=== PATIENT | female | born 1990 | race Caucasian/White ===

== ENCOUNTER 2021-04-09 05:19 | Inpatient (IN) | payer MEDICAID ==
[2021-04-09] MEDS ORDERED: Scopolamine 1.5 MG Transdermal Patch TRDERM ONE (05:30)
[2021-04-09] MEDS ORDERED: Acetaminophen 500 MG Tab PO ONE (05:30)
[2021-04-09] MEDS ORDERED: Celecoxib 200 MG Cap PO ONE (05:30)
[2021-04-09] MEDS ORDERED: cefOXitin 2 GM Vial ONE (06:52)
[2021-04-09] MEDS ORDERED: Dextrose 5%-Lactated Ringers 1,000 ML IV SCH (07:00)
[2021-04-09] MEDS ORDERED: Albuterol/Ipratropium 3.0-0.5 MG/3 ML Neb Soln NEB ONE (07:00)
[2021-04-09] MEDS ORDERED: Ondansetron 4 MG/2 ML SDV ONE (07:10)
[2021-04-09] MEDS ORDERED: Propofol 200 MG/20 ML SDV ONE (07:10)
[2021-04-09] MEDS ORDERED: fentaNYL 250 MCG/5 ML SDV ONE (07:10)
[2021-04-09] MEDS ORDERED: Neostigmine Methylsulfate 1 MG/ML 5 ML Syringe ONE (07:10)
[2021-04-09] MEDS ORDERED: Dexamethasone 4 MG/ML SDV ONE (07:10)
[2021-04-09] MEDS ORDERED: Rocuronium 50 MG/5 ML Vial ONE (07:10)
[2021-04-09] MEDS ORDERED: Succinylcholine 200 MG/10 ML MDV ONE (07:10)
[2021-04-09] MEDS ORDERED: Glycopyrrolate 0.2 MG/ML 5 ML MDV ONE (07:10)
[2021-04-09] MEDS ORDERED: Lactated Ringers 1,000 ML ONE (07:14)
[2021-04-09] MEDS ORDERED: cefOXitin 2 GM in Sodium Chloride 0.9% 50 ML IV ONE (07:45)
[2021-04-09] MEDS ORDERED: Ropivacaine 50 ML, dexAMETHasone 8 MG, EPINEPHrine 0.4 MG, Sodium Chloride 0.9% 27.6 ML NERVRT SCH ×4 (08:00)
[2021-04-09] MEDS ORDERED: Magnesium Sulfate 3 GM in Sodium Chloride 0.9% 100 ML IV SCH (08:00)
[2021-04-09] MEDS ORDERED: Ketamine 500 MG/5 ML MDV IV SCH (08:00)
[2021-04-09] MEDS ORDERED: Ketamine 50 MG in Sodium Chloride 0.9% 49.5 ML IV SCH (08:00)
[2021-04-09] MEDS ORDERED: Magnesium Sulfate 3.2 GM in Sodium Chloride 0.9% 250 ML IV ONE (08:30)
[2021-04-09] MEDS ORDERED: fentaNYL 100 MCG/2 ML SDV ONE (09:29)
[2021-04-09] MEDS ORDERED: hydrOXYzine HCL 100 MG/2 ML SDV IM ONE (10:13)
[2021-04-09] MEDS ORDERED: fentaNYL 100 MCG/2 ML SDV IVPUSH ONE (10:23)
[2021-04-09] MEDS ORDERED: Cyclobenzaprine 10 MG Tab PO PRN (11:20)
[2021-04-09] MEDS ORDERED: diphenhydrAMINE 50 MG/ML SDV IVPUSH PRN (12:00)
[2021-04-09] MEDS ORDERED: HYDROmorphone 0.5 MG/0.5 ML Syringe IVPUSH PRN (12:00)
[2021-04-09] MEDS ORDERED: HYDROmorphone 1 MG/ML Syringe IV PRN (12:00)
[2021-04-09] MEDS ORDERED: Labetalol 20 MG/4 ML Syringe IVPUSH PRN (12:00)
[2021-04-09] MEDS ORDERED: traMADol 50 MG Tab PO PRN (12:00)
[2021-04-09] MEDS ORDERED: Calcium Gluconate 10% 1 GM/10 ML SDV IVPUSH PRN (12:00)
[2021-04-09] MEDS ORDERED: Ondansetron 4 MG/2 ML SDV IVPUSH PRN (12:00)
[2021-04-09] MEDS ORDERED: hydrOXYzine HCL 100 MG/2 ML SDV IM PRN (12:00)
[2021-04-09] MEDS ORDERED: Metoclopramide 10 MG/2 ML SDV IVPUSH PRN (12:00)
[2021-04-09] MEDS ORDERED: Albuterol/Ipratropium 3.0-0.5 MG/3 ML Neb Soln INH PRN (12:00)
[2021-04-09] MEDS ORDERED: Acetaminophen 500 MG Tab PO PRN (12:00)
[2021-04-09] MEDS: Dextrose 5%-Lactated Ringers 1,000 ML IV SCH (13:08)
[2021-04-09] MEDS: cefOXitin 2 GM in Sodium Chloride 0.9% 50 ML IV SCH ×2 (13:12→19:59)
[2021-04-09] MEDS: Acetaminophen 500 MG Tab PO SCH ×2 (13:30→21:38)
[2021-04-09] MEDS ORDERED: Pantoprazole 40 MG Vial IVPUSH SCH (14:00)
[2021-04-09] MEDS: Albuterol/Ipratropium 3.0-0.5 MG/3 ML Neb Soln INH SCH ×2 (14:34→21:38)
[2021-04-09] MEDS ORDERED: MVI, Adult with Vitamin K 10 ML, Thiamine 200 MG, Zinc/Copper/Manganese/Selenium 1 ML i... IV SCH ×4 (16:00)
[2021-04-09] MEDS: oxyCODONE 5 MG Tab PO PRN ×2 (16:19→22:14)
--- NOTE | 2021-04-09 16:46 | PCM.EKG ---
#1 Interpretation EKG Date: 04/09/21 Time: 07:02 Rhythm: NSR Rate (Beats/Min): 71 [place]: Normal P-Wave: Present QRS: Normal ST-T: Normal QT: Normal [place]/PQ Interval: Normal Comparison: NA - No Prior EKG
[2021-04-09] MEDS: Heparin Sodium 5,000 Units/ML Vial SUBCUT SCH (18:05)
[2021-04-10] MEDS: cefOXitin 2 GM in Sodium Chloride 0.9% 50 ML IV SCH ×2 (02:11→08:53)
[2021-04-10] MEDS: Dextrose 5%-Lactated Ringers 1,000 ML IV SCH ×2 (02:13→06:12)
[2021-04-10] MEDS ORDERED: Iopamidol 612 MG/ML 50 ML SDV PO PRN (02:15)
[2021-04-10] MEDS: oxyCODONE 5 MG Tab PO PRN ×3 (04:33→21:45)
[2021-04-10] MEDS: Heparin Sodium 5,000 Units/ML Vial SUBCUT SCH ×2 (06:10→17:17)
[2021-04-10] MEDS: Acetaminophen 500 MG Tab PO SCH ×3 (06:10→21:46)
[2021-04-10] MEDS: Albuterol/Ipratropium 3.0-0.5 MG/3 ML Neb Soln INH SCH ×4 (07:08→21:45)
[2021-04-10] MEDS ORDERED: Dextrose 5%-Lactated Ringers 1,000 ML IV SCH (08:00)
[2021-04-10] MEDS: Fluconazole 100 MG Tab PO SCH (08:55)
[2021-04-10] MEDS: Fluticasone Propionate Nasal Spray 16 GM Bottle NASBOTH SCH (08:55)
[2021-04-10] MEDS: Famotidine 20 MG Tab PO SCH (08:55)
[2021-04-10] MEDS: Celecoxib 200 MG Cap PO SCH ×2 (08:55→21:45)
[2021-04-10] MEDS: SCOPOLAMINE PATCH CHECK TOP SCH (08:56)
[2021-04-10] MEDS: Cetirizine 10 MG Tab PO SCH (08:56)
[2021-04-10] MEDS ORDERED: Ondansetron 4 MG Tab.DIS PO PRN (12:48)
[2021-04-10] MEDS ORDERED: Pantoprazole 40 MG Delayed-Release Granules 1 Packet PO SCH (14:00)
[2021-04-10] MEDS ORDERED: MVI, Adult with Vitamin K 10 ML, Thiamine 200 MG, Zinc/Copper/Manganese/Selenium 1 ML i... IV SCH ×4 (16:00)
[2021-04-11] MEDS: oxyCODONE 5 MG Tab PO PRN (05:26)
[2021-04-11] MEDS: Heparin Sodium 5,000 Units/ML Vial SUBCUT SCH (05:27)
[2021-04-11] MEDS: Acetaminophen 500 MG Tab PO SCH (05:27)
[2021-04-11] MEDS: Albuterol/Ipratropium 3.0-0.5 MG/3 ML Neb Soln INH SCH (07:17)
[2021-04-11] MEDS ORDERED: Magnesium Hydroxide 400 MG/5 ML Susp 30 ML Cup PO ONE (09:00)
[2021-04-11] MEDS ORDERED: Cyanocobalamin (Vitamin B12) 1,000 MCG/ML SDV IM ONE (09:00)
[2021-04-11] MEDS: SCOPOLAMINE PATCH CHECK TOP SCH (09:47)
[2021-04-11] MEDS: Famotidine 20 MG Tab PO SCH (09:49)
[2021-04-11] MEDS: Fluconazole 100 MG Tab PO SCH (09:49)
[2021-04-11] MEDS: Celecoxib 200 MG Cap PO SCH (09:49)
[2021-04-11] MEDS: Cetirizine 10 MG Tab PO SCH (09:49)
[2021-04-11] MEDS: Fluticasone Propionate Nasal Spray 16 GM Bottle NASBOTH SCH (09:50)
--- NOTE | 2021-04-12 09:24 | CR ---
UGI Limited HISTORY: Postbariatric surgery FINDINGS: Patient swallowed water-soluble contrast. Upright views of the abdomen show no evidence of extravasation or obstruction. There is a surgical drain in the left upper quadrant IMPRESSION: Status post bariatric surgery No extravasation or obstruction seen
--- NOTE | 2021-04-16 13:47 | PN ---
DATE OF SERVICE: 04/10/2021 The patient is postop day 1 from laparoscopic gastric bypass along with truncal vagotomy and repair of paraesophageal diaphragmatic hernia. Clinically, she is doing well at this point and will be moved up to a step-2 diet. Upper GI x-ray looks good, and she may be ready for discharge home tomorrow. Isaiah Fernandez MD /[id number]
--- NOTE | 2021-04-16 13:56 | DISCH ---
FINAL DIAGNOSES: 1. Morbid obesity. 2. History of non-alcoholic steatohepatitis. 3. Paraesophageal diaphragmatic hernia. 4. History of recurrent peptic ulcer disease, gastritis, and duodenitis. SECONDARY DIAGNOSES: 1. Anxiety. 2. Asthma. 3. Gastroesophageal reflux disease. 4. History of gestational diabetes. OPERATIVE PROCEDURE: Done on 04/09/2021, diagnostic laparoscopy with: 1. Laparoscopic Vipul-en-Y gastric bypass along with gastroenterostomy. 2. Abisai-Cut needle liver biopsy. 3. Repair of paraesophageal diaphragmatic hernia. 4. Truncal vagotomy. SUMMARY: This is a 30-year-old female presenting with longstanding morbid obesity and increasingly significant comorbidities. After preoperative evaluation and discussion, she wished to proceed with a gastric bypass procedure. She does have a history of TEMPLE and will undergo a liver biopsy as do all of the obesity surgery patients. She also has history of [id number] gastritis, duodenitis, and peptic ulcer disease, and to augment postoperative control in the bypassed portion of the stomach and duodenum, truncal vagotomy will be planned as well, and we will then continue on the Pepcid and Prevacid postoperatively. The Carafate in this case would not be effective as it would not be in contact with the bypassed stomach or duodenum. Postoperatively, the patient had no major problems. She is sent home on a step-2 diet with followup with Cyndy Sanchez at [facility] on 04/19/2021. Her medications will be the same as preoperatively other than we will hold the Carafate as mentioned above and she will be offered Tylenol 1 g q.i.d. p.r.n. as well as oxycodone 5 mg p.o. q.6 hours p.r.n., #12. /[id number]
--- NOTE | 2021-04-19 14:43 | OR ---
DATE OF PROCEDURE: 04/09/2021 SURGEON: Isaiah Fernandez MD PREOPERATIVE DIAGNOSES: 1. Morbid obesity. 2. History of recurrent peptic ulcer disease. 3. History of nonalcoholic steatohepatitis. POSTOPERATIVE DIAGNOSES: 1. Morbid obesity. 2. History of recurrent peptic ulcer disease. 3. History of nonalcoholic steatohepatitis. 4. Paraesophageal diaphragmatic hernia. OPERATIVE PROCEDURES: Diagnostic laparoscopy with: 1. Laparoscopic Vipul-en-Y gastric bypass with long limb gastroenterostomy (68668). 2. Abisai-Cut needle liver biopsy (67811). 3. Repair of paraesophageal diaphragmatic hernia (35550). 4. Truncal vagotomy (48678). ANESTHESIA: General. DBAS: Cyndy Sanchez PA-C INDICATIONS FOR PROCEDURE: This is a 30-year-old female, presenting with longstanding morbid obesity and increasingly significant comorbidities. Plan is to proceed with a Vipul- en-Y gastric bypass. The patient also has history of nonalcoholic steatohepatitis, so as per the bariatric surgery routine, a liver biopsy will be obtained. She also has history of some recurrent peptic ulcer disease, presently being maintained on a combination of Carafate and proton pump inhibitors. Per preoperative discussion, a truncal vagotomy will also be performed at this procedure, which should generally decrease the recurrence rate of peptic ulcer disease as well as associated gastritis and duodenitis by around 50%. Potential risks of the procedure including bleeding, infection, leaks from various GI tract closures, problems with bowel obstruction over time, as well as possibility of cardiopulmonary, septic, or hemorrhagic complications leading to were discussed, and the patient wishes to proceed. The patient is aware that despite the truncal vagotomy, there is some possibility of the patient developing recurrent peptic ulcer disease or bleeding gastritis and duodenitis, which might at some point require a completion distal gastrectomy. DETAILS OF PROCEDURE: The patient was taken to the operating room. After general endotracheal anesthesia was induced, the abdomen was prepped and draped. The patient was placed in a lithotomy position. 15 cm inferior and 5 cm left of the Xiphoid process, a transverse incision was made and the peritoneal cavity entered under direct vision with an Optiview trocar, inflated to 15 mmHg pressure with CO2. Laparoscope was reinserted. No underlying trocar insertion site injuries were seen. Following this, bilateral transversus abdominis plane blocks were placed and 5 additional trocars were placed across the upper and mid abdomen. Liver was examined and at this point found to be grossly only minimally fatty infiltrated. There were no signs of any hepatic cirrhosis or portal hypertension. Abisai-Cut biopsies were obtained from left lobe of the liver. Minimal bleeding from the biopsy sites was controlled with electrocautery. The omentum was then divided in the midline up to the level of the transverse colon. This allowed identification of small bowel to the ligament of Treitz. Small bowel was then traced out 150 cm distal to that point, where it was divided transversely with a AHMET stapler. Small bowel was then traced out additional 150 cm where the fjia-ca-ghii enteroenterostomy was accomplished with an internal firing of the Endo-AHMET 60 mm stapler. Common opening was then closed transversely with the same stapler and angles anastomosed and mesenteric defect approximated with some 0 Ethibond stitch along with 4 mL of fibrin sealant. The liver was then retracted anteriorly, and at this point, the patient was noted to have a moderate-sized paraesophageal diaphragmatic hernia and peritoneum overlying this was incised and reflected downward and the diaphragmatic hernia was then repaired anteriorly with a series of 0 Ethibond sutures reinforced with PTFE pledgets. The anterior vagus nerve was easily identified and the soft tissue around the distal esophagus were then skeletonized from that point posteriorly on the right side. During the course of the diaphragmatic hernia dissection, the peritoneum and fatty tissues on the anterior aspect of the esophagus were likewise divided and this dissection then continued posteriorly more or less circumferentially around the distal esophagus. The main trunk of the posterior left vagus nerve was also identified and divided with Harmonic Scalpel and the previous nerve and nerve branches. At this point, the gastrointestinal catheter was inflated 15 mL and pulled up snugly against the EG junction. Gastric wall over the apex of the balloon was then marked with electrocautery and balloon catheter deflated and pulled up from the esophagus. The lesser omental tissue adjacent to the gastric cardia was then incised allowing dissection behind the stomach at the level of the cauterized anjali of the gastric cardia with transverse firing of the AHMET stapler was initiated for formation of the pouch. The pouch was then completed with additional firings of AHMET stapler up to and through the angle of His. Upon completion of the pouch, both staple lines were noted to be intact. The anvil of a 25 mm EEA stapler was attached to Hester sump type tube. The latter was brought down through the mouth, taken out a small opening in the gastric pouch allowing the anvil likewise to be pulled down to within the gastric pouch. Divided end of the Vipul limb was then opened and the main body of the EEA stapler passed several centimeters into the lumen of the small bowel, brought up the anvil, and united with it, thus creating the gastrojejunostomy. Upon removal of the stapler, double donuts of mucosa were noted within it. The small bowel was closed off with a vascular staple line. Gastrojejunostomy was reinforced with some 3-0 Vicryl seromuscular stitch along with fibrin sealant. Leak test was accomplished with injection of 120 mL of air in the gastric pouch while it was submerged with a cefoxitin-containing saline solution. No leaks were identified. A single Felix- Morgan drain was taken out through the left lateral trocar site and positioned adjacent to the gastrojejunostomy and from there up into the area of the angle of His. Upon completion of this, the trocars were removed, peritoneal cavity deflated. Incision and the skin were closed with 4-0 Vicryl stitch, which was also used to fix the drain. The patient was taken to the recovery room in satisfactory condition. Physician orthodontic assistant, Cyndy Sanchez, played an essential role in assisting in this case, helping to position the patient, retract structures as needed, as well as suturing and cutting sutures when indicated. Her presence improved patient safety and decreased operative time. Isaiah Fernandez MD /[id number]
== END 2021-04-11 10:15 | disposition home or self-care (01) | DRG 621 ==
LOC: JP.SDSSCHI 05:19 → JP.SDS 05:19 → EDSTATUS 08:30 → JP.MS 10:00
PROVIDERS: ADMIT Surgery; ATTEND Surgery
PROC: 0D164ZA Bypass Stomach to Jejunum, Percutaneous Endoscopic Approach (ICD-10-PCS; principal; 2021-04-09)
PROC: 0FB24ZX Excision of Left Lobe Liver, Percutaneous Endoscopic Approach, Diagnostic (ICD-10-PCS; 2021-04-09)
PROC: 0BQT4ZZ Repair Diaphragm, Percutaneous Endoscopic Approach (ICD-10-PCS; 2021-04-09)
PROC: 008Q4ZZ Division of Vagus Nerve, Percutaneous Endoscopic Approach (ICD-10-PCS; 2021-04-09)
DX: E66.01 Morbid (severe) obesity due to excess calories (principal); F41.9 Anxiety disorder, unspecified; J45.909 Unspecified asthma, uncomplicated; K21.9 Gastro-esophageal reflux disease without esophagitis; K75.81 Nonalcoholic steatohepatitis (NASH); K29.50 Unspecified chronic gastritis without bleeding; Z98.890 Other specified postprocedural states; Z79.899 Other long term (current) drug therapy; Z88.1 Allergy status to other antibiotic agents; Z88.5 Allergy status to narcotic agent; Z87.891 Personal history of nicotine dependence; Z68.38 Body mass index [BMI] 38.0-38.9, adult; Z87.11 Personal history of peptic ulcer disease
CPT/HCPCS: 36415; 74240; 74240-26; 80053; 81025; 83735; 84100; 85027; 86850; 86900; 86901; 88307; 88313; 93005; 94640; 94762; A9270-GY; C9113; J0171; J0330; J0694; J1100; J1170; J1644; J2405; J2704; J2710; J2795; J3010; J3410; J3411; J3420; J3475; J3490; J7050; J7120; J7121; J7620-GY; Q9967

== ENCOUNTER 2021-06-11 05:28 | Day surgery (SDC) | payer MEDICAID ==
[2021-06-11] MEDS ORDERED: Scopolamine 1.5 MG Transdermal Patch TOP ONE (06:03)
[2021-06-11] MEDS ORDERED: Acetaminophen 500 MG Tab PO ONE (06:15)
[2021-06-11] MEDS ORDERED: Bupivacaine 0.5%/EPINEPHrine 1:200,000 50 ML MDV ONE (06:32)
[2021-06-11] MEDS: Dextrose 5%-Lactated Ringers 1,000 ML IV SCH ×2 (06:35→22:43)
[2021-06-11] MEDS ORDERED: cefOXitin 2 GM Vial ONE (06:46)
[2021-06-11] MEDS ORDERED: cefOXitin 2 GM in Sodium Chloride 0.9% 50 ML IV ONE (07:00)
[2021-06-11] MEDS ORDERED: Albuterol/Ipratropium 3.0-0.5 MG/3 ML Neb Soln NEB ONE (07:00)
[2021-06-11] MEDS ORDERED: Neostigmine Methylsulfate 1 MG/ML 5 ML Syringe ONE (07:07)
[2021-06-11] MEDS ORDERED: Glycopyrrolate 0.2 MG/ML 5 ML MDV ONE (07:07)
[2021-06-11] MEDS ORDERED: Propofol 200 MG/20 ML SDV ONE (07:07)
[2021-06-11] MEDS ORDERED: Dexamethasone 4 MG/ML SDV ONE (07:07)
[2021-06-11] MEDS ORDERED: Rocuronium 50 MG/5 ML Vial ONE (07:07)
[2021-06-11] MEDS ORDERED: fentaNYL 250 MCG/5 ML SDV ONE (07:07)
[2021-06-11] MEDS ORDERED: Ondansetron 4 MG/2 ML SDV ONE (07:07)
[2021-06-11] MEDS ORDERED: Succinylcholine 200 MG/10 ML MDV ONE (07:07)
[2021-06-11] MEDS ORDERED: Midazolam 1 MG/ML 2 ML SDV ONE (07:07)
[2021-06-11] MEDS ORDERED: Ketamine 500 MG/5 ML MDV IV SCH (07:30)
[2021-06-11] MEDS ORDERED: Ketamine 16 MG in Sodium Chloride 0.9% 19.84 ML IV SCH (07:30)
[2021-06-11] MEDS ORDERED: Ropivacaine 44 ML, dexAMETHasone 8 MG, EPINEPHrine 0.4 MG, Sodium Chloride 0.9% 33.6 ML NERVRT SCH ×4 (07:30)
[2021-06-11] MEDS ORDERED: hydrOXYzine HCL 100 MG/2 ML SDV IM ONE (08:41)
[2021-06-11] MEDS ORDERED: fentaNYL 100 MCG/2 ML SDV IVPUSH ONE (08:41)
[2021-06-11] MEDS: HYDROmorphone 0.5 MG/0.5 ML Syringe IVPUSH PRN ×2 (09:59→16:01)
[2021-06-11] MEDS ORDERED: Ondansetron 4 MG/2 ML SDV IVPUSH PRN (10:00)
[2021-06-11] MEDS ORDERED: Albuterol/Ipratropium 3.0-0.5 MG/3 ML Neb Soln INH PRN (10:00)
[2021-06-11] MEDS ORDERED: HYDROmorphone 1 MG/ML Syringe IV PRN (10:00)
[2021-06-11] MEDS ORDERED: Pantoprazole 40 MG Vial IVPUSH SCH (11:00)
[2021-06-11] MEDS: Fluconazole 100 MG Tab PO SCH (11:35)
[2021-06-11] MEDS: cefOXitin 2 GM in Sodium Chloride 0.9% 50 ML IV SCH ×2 (13:17→20:43)
[2021-06-11] MEDS: Famotidine 20 MG Tab PO SCH (20:42)
[2021-06-11] MEDS: oxyCODONE 5 MG Tab PO PRN (20:42)
[2021-06-12] MEDS: cefOXitin 2 GM in Sodium Chloride 0.9% 50 ML IV SCH ×2 (02:33→09:14)
[2021-06-12] MEDS: oxyCODONE 5 MG Tab PO PRN ×2 (05:05→09:19)
[2021-06-12] MEDS: Famotidine 20 MG Tab PO SCH (08:09)
[2021-06-12] MEDS: Fluconazole 100 MG Tab PO SCH (08:09)
[2021-06-12] MEDS ORDERED: Magnesium Hydroxide 400 MG/5 ML Susp 30 ML Cup PO ONE (09:00)
[2021-06-12] MEDS ORDERED: Cetirizine 10 MG Tab PO SCH (09:00)
[2021-06-12] MEDS ORDERED: Pantoprazole 40 MG Tab.CR PO SCH (09:00)
--- NOTE | 2021-06-14 14:16 | DISCH ---
FINAL DIAGNOSIS: Biliary dyskinesia associated with chronic cholecystitis and cholelithiasis. SECONDARY DIAGNOSES: 1. Bariatric surgery status. 2. Recurrent incarcerated incisional hernia. 3. History of ulcerative colitis. 4. History of gastroesophageal reflux disease. 5. History of nonalcoholic steatohepatitis. 6. History of asthma. OPERATIVE PROCEDURE: Diagnostic laparoscopy with: 1. Cholecystectomy. 2. Repair of incarcerated recurrent incisional hernia. SUMMARY: This is a 30-year-old female presenting with recurrent right upper quadrant pain. An ultrasound was obtained initially which was negative for any cholelithiasis. A CCK- stimulated HIDA scan was obtained which had a normal ejection fraction, but the CCK injection caused reproduction of the patient's symptoms. She was therefore referred for a laparoscopic cholecystectomy. On the day of admission, the patient underwent a laparoscopic cholecystectomy. She was noted to have some small stones, one of which was lodged in the cystic duct and underwent an otherwise unremarkable cholecystectomy. She also had a small recurrence of the incisional hernia just above the previously placed periumbilical mesh which was repaired concurrently. Postoperatively, she has done well. Labs look good this morning and she will be discharged home with her usual medications plus oxycodone 5 mg p.o. q.6 hours p.r.n. pain #12, Tylenol 1 g q.6 hours p.r.n. pain, and 2 doses of milk of magnesia to take as needed for constipation. Follow up with Cyndy Sanchez will be at [facility] on 06/21/2021. /[id number]
--- NOTE | 2021-06-15 07:32 | OR ---
DATE OF PROCEDURE: 06/11/2021 SURGEON: Isaiah Fernandez MD PREOPERATIVE DIAGNOSIS: Biliary dyskinesia. POSTOPERATIVE DIAGNOSES: 1. Biliary dyskinesia associated with cholelithiasis. 2. Recurrent incarcerated incisional hernia. OPERATIVE PROCEDURES: Diagnostic laparoscopy with, 1. Cholecystectomy (60688). 2. Repair of recurrent incarcerated incisional hernia (52599). ANESTHESIA: General. GLOBAL [employer]UL[employer] AFFAIRS MANAGER: Cyndy Sanchez PA-C INDICATIONS FOR PROCEDURE: This is a 30-year-old presenting with episodes of right upper quadrant pain. Potential ultrasound was negative. CCK stimulated HIDA scan showed a normal ejection fraction but the CCK ejection produced reproduction of the patient's symptoms quite specifically, and at this point, plan is to proceed with a laparoscopic cholecystectomy. Potential risks of the procedure including bleeding, infection, injury to underlying viscera, problems with persistent or recurrent symptoms over time were all reviewed and the patient wishes to proceed. DETAILS OF PROCEDURE: The patient was taken to the operating room, placed in a supine position. After general endotracheal anesthesia was induced, the abdomen was prepped and draped. A transverse incision just below the umbilicus was made and Veress needle inserted. No return of bile or blood were noted and the saline injection easily dropped into the peritoneal cavity. The peritoneal cavity was inflated with CO2 to 15 mmHg pressure. Following this, then the transverse epigastric incision was made and the peritoneal cavity entered under direct vision with an Optiview trocar. This then allowed viewing down towards the area of the previous periumbilical hernia repair that showed some omental adhesions along with recurrence of the hernia somewhat superior to the umbilicus above the pre- existing mesh. Given this, the 12 mm camera port trocar was then placed through that area of the herniation to allow subsequent repair. 5 mm trocar was then placed into the right subcostal area as well at this point. The gallbladder was then retracted anteriorly and was noted to be somewhat distended during subsequent dissection, the patient was noted to have a small stone located within the cystic duct as well as some additional small stones which was evacuated upon removal of the gallbladder and associated bile. Gallbladder then retracted anteriorly and laterally and dissection began on the gallbladder neck and continued around the gallbladder neck and cystic duct junction. Once that area was well delineated as was the adjacent cystic artery, both structures were taken with 3 clips proximally and 1 clip distally. Upon division of the cystic duct between the clips, the patient was noted to have a small stone located within the cystic duct. This being beyond the point where the more proximal clips were placed, i.e., this would not be associated with the likelihood of development of choledocholithiasis. Cystic artery was similarly clipped and divided and the gallbladder dissected off the gallbladder bed using Harmonic scalpel. It was brought up the epigastric trocar site and opened and the bile evacuated. This involved removal of the some small visible stones as well into the suction and the specimen then delivered through the epigastric trocar site. The camera was then brought up to the epigastric site and the recurrent hernia was then closed with 0 Vicryl sutures placed with the laparoscopic suture passer closing this with a transverse orientation. Following completion of those sutures, the remaining trocars were removed and peritoneal cavity deflated. Drain was not placed as there appeared to be secure closure of the cystic duct. The fascia at the epigastric site was closed with 0 Vicryl stitch and the skin at each sites with 4-0 Vicryl skin stitch. Prior to closure, bilateral transverse abdominis plane blocks were placed. Wounds were anesthetized with 1% lidocaine mixed with Marcaine and the patient taken to the recovery room in satisfactory condition. Physician anesthetic assistant, Cyndy Sanchez, played an essential role in assisting in this case helping to position the patient, retract structures as needed, as well as suturing and cutting sutures when indicated. Her presence improved patient safety and decreased the operative time. Isaiah Fernandez MD /[id number]
== END 2021-06-12 10:22 | disposition home or self-care (01) ==
LOC: JP.SDS 05:28 → JP.ICU 09:27 → JP.SDS 06-12 10:22
PROVIDERS: ATTEND Surgery
DX: K81.0 Acute cholecystitis (principal); K82.8 Other specified diseases of gallbladder; K43.0 Incisional hernia with obstruction, without gangrene; K75.81 Nonalcoholic steatohepatitis (NASH); J45.909 Unspecified asthma, uncomplicated; Z79.899 Other long term (current) drug therapy; Z88.1 Allergy status to other antibiotic agents; Z88.5 Allergy status to narcotic agent; Z98.890 Other specified postprocedural states; Z87.891 Personal history of nicotine dependence
CPT/HCPCS: 36415; 47562; 49657; 81025; 82247; 84075; 85027; 94640; A9270; C9113; J0171; J0330; J0694; J1100; J1170; J2250; J2405; J2704; J2710; J2795; J3010; J3410; J3490; J7121; 88304; J7620-GY

== ENCOUNTER 2021-12-23 07:33 | Emergency (ER) | payer MEDICAID, OTHER ==
[2021-12-23] MEDS ORDERED: Ketorolac 30 MG/ML SDV IVPUSH ONE (08:24)
[2021-12-23] MEDS ORDERED: Sodium Chloride 0.9% 1,000 ML IV SCH (08:30)
[2021-12-23 09:15] LABS: CORONAVIRUS COVID-19 NAA NEGATIVE (NEGATIVE)
[2021-12-23] MEDS ORDERED: Iopamidol 612 MG/ML 100 ML Bottle IV PRN (09:20)
[2021-12-23] MEDS ORDERED: Sodium Chloride 0.9% 100 ML IV SCH (09:30)
== END 2021-12-23 11:14 | disposition home or self-care (01) ==
LOC: JP.ED 07:33
DX: M54.50 Low back pain, unspecified (principal); B34.9 Viral infection, unspecified; K21.9 Gastro-esophageal reflux disease without esophagitis; E66.9 Obesity, unspecified; Z68.30 Body mass index [BMI] 30.0-30.9, adult; Z88.0 Allergy status to penicillin; Z88.5 Allergy status to narcotic agent; Z20.822 Contact with and (suspected) exposure to COVID-19
CPT/HCPCS: 0241U; 36415; 74177; 74177-26; 82550; 83605; 85027; 96374; 99283; 99284-25; J1885; J3490; J7030; Q9967